=== PATIENT | female | born 1965 | race Asian ===

== ENCOUNTER 2020-11-29 13:57 | Emergency (ER) | payer OTHER ==
[~2020-11-29] VITALS: Ht 180.3 cm; Wt 129.3 kg
[2020-11-29 14:05] VITALS: BP 138/77; TEMP 97.7
[2020-11-29 15:13] LABS: PLATELET COUNT 290 K/uL (152-353)
[2020-11-29 15:41] LABS: POTASSIUM 3.7 mmol/L (3.6-5.2)
[2020-11-29] MEDS ORDERED: APIX1TAB PO (16:57)
[2020-11-29] MEDS ORDERED: SIMV20TA2 PO (16:58)
[2020-11-29] MEDS ORDERED: FORTAMET500 MG PO (16:59)
[2020-11-29] MEDS ORDERED: QUETIAPINE300 MG PO (17:01)
[2020-11-29] MEDS ORDERED: MOBIC7.5 M1 PO (17:02)
[2020-11-29] MEDS ORDERED: TRAZ50TA36 PO (17:02)
[2020-11-29] MEDS ORDERED: MIDODRINE2.5 MG PO (17:03)
[2020-12-08] MEDS ORDERED: CYAN10009 IM (08:56)
[2020-12-08] MEDS ORDERED: TRAZ50TA36 PO (08:56)
[2020-12-08] MEDS ORDERED: FOLI1TAB26 PO (08:57)
[2020-12-08] MEDS ORDERED: CHOL100034 PO (08:58)
[2020-12-08] MEDS ORDERED: BUPR150T PO (08:58)
[2020-12-08] MEDS ORDERED: DIVALPROEX500 MG PO (08:58)
[2020-12-08] MEDS ORDERED: ABILIFY20 MG PO (09:00)
[2020-12-08] MEDS ORDERED: APIX1TAB PO (09:03)
[2020-12-08] MEDS ORDERED: MIDODRINE2.5 MG PO (09:03)
[2020-12-08] MEDS ORDERED: MOBIC7.5 M1 PO (09:03)
[2020-12-08] MEDS ORDERED: SIMV20TA2 PO (09:03)
[2020-12-08] MEDS ORDERED: FORTAMET500 MG PO (09:03)
== END 2020-11-29 16:09 | disposition other institution (70) ==
LOC: ED 13:57
PROVIDERS: Family Medicine
DX: R44.0 Auditory hallucinations (principal); R46.89 Other symptoms and signs involving appearance and behavior; Z11.59 Encounter for screening for other viral diseases; Z04.6 Encounter for general psychiatric examination, requested by authority
CPT/HCPCS: 80053; 85027; 87635; 93005; 99283; U0003